=== PATIENT | female | born 1990 | race Caucasian/White ===

== ENCOUNTER 2017-09-09 09:44 | Inpatient (IN) | payer BC ==
[2017-09-09] MEDS ORDERED: Sodium Chloride 0.9% 10 ML Syringe FLUSH PRN (11:07)
[2017-09-09] MEDS ORDERED: ceFAZolin 2 GM in Premix Bag 1 BAG IV ONE (11:07)
[2017-09-09] MEDS ORDERED: Metoclopramide 10 MG/2 ML SDV IVPUSH ONE (11:07)
[2017-09-09] MEDS ORDERED: Citric Acid/Sodium Citrate Solution 30 ML Cup PO ONE (11:07)
[2017-09-09] MEDS ORDERED: Lactated Ringers 1,000 ML IV SCH (11:15)
[2017-09-09] MEDS ORDERED: Oxytocin/Lactated Ringers 20 UNIT/1,000 ML BAG IV SCH (11:15)
[2017-09-09] MEDS ORDERED: Bupivacaine 0.5% 30 ML SDV ONE (12:25)
--- NOTE | 2017-09-09 12:33 | PCM.LDHP ---
L&D History of Present Illness - General Date of Service: 09/09/17 Admit Problem/Dx: Patient Status Order with Admit Dx/Problem 09/09/17 11:09 Patient Status [ADT] Routine Admission Diagnosis/Problem Admission Diagnosis/Problem Source of Information: Patient History Limitations: Reports: No Limitations - History of Present Illness Introduction:: 26-year-old CHENTE 09/06/17 at estimated gestational age of 40 weeks and 3 days. Presented to labor and delivery with contractions and oblique/ transverse lie. Confirmed by Tawanda maneuver and absence of presenting part in the pelvis. Will proceed with section. GBS positive. A positive blood type antibody screen negative hemoglobin hematocrit on 02/09/1711.5/33.4 platelets 265,000 Pap smear atypical squamous cells of undetermined significance will repeat Pap . Rubella titer immune serology nonreactive urine culture mixed jhonny hepatitis B surface antigen negative HIV negative Chlamydia and GC probe were negative on 06/17/17 hemoglobin hematocrit 9.6 and 29.0 platelets 248,001 hour OB glucose screen 133 hour glucose tolerance test on 06/21/17 fasting 101, 1 hour 136, two-hour 150, 3 hour 122. Group B strep positive and 08/12/17. Improves with: Reports: None Worsens with: Reports: None Associated Symptoms: Reports: N - Related Data Allergies/Adverse Reactions: Allergies Allergy/AdvReac Type Severity Reaction Status Date / Time No Known Allergies Allergy Verified 09/09/17 11:06 Past Medical History : 1 Para: 0 (0000) H&P Review of Systems - Review of Systems: Review Of Systems: See Below General: Reports: No Symptoms HEENT: Reports: No Symptoms Pulmonary: Reports: No Symptoms Cardiovascular: Reports: No Symptoms Gastrointestinal: Reports: No Symptoms Genitourinary: Reports: No Symptoms Musculoskeletal: Reports: No Symptoms Skin: Reports: No Symptoms Psychiatric: Reports: No Symptoms Neurological: Reports: No Symptoms Hematologic/Lymphatic: Reports: No Symptoms Immunologic: Reports: No Symptoms L&D Exam - Exam Exam: See Below - Vital Signs Weight: 247 lb - OB Specific Fundal Height In cm: 41 Contraction Duration (sec): 30 Contraction Intensity: Mild to Moderate Movement: Active Heart Tones: Present Heart Tones per Min: 145 Heart Rate (FHR) Variability: Moderate (6-25 bmp) Presentation: Vertex - Bullock Score Bullock Score Cervix Position: Posterior Bullock Score Consistency: Soft Bullock Score Effacement: 0-30% Bullock Score Dilation: Closed Bullock Score 's Station: -3 (Oblique lie/transverse lie no presenting part in the pelvis.) Bullock Score Total: 2 - Exam General: Alert, Oriented HEENT: Conjunctiva Clear, Posterior Pharynx Clear, TMs Clear, PERRLA Neck: Supple, Trachea Midline Lungs: Clear to Auscultation, Normal Respiratory Effort Cardiovascular: Regular Rate, Regular Rhythm GI/Abdominal Exam: Normal Bowel Sounds, Soft, Non-Tender, No Organomegaly, No Distention, No Abnormal Bruit, No Mass, Pelvis Stable Genitourinary: Normal external exam, Normal bimanual exam, Normal speculum exam Extremities: Normal Inspection, Normal Range of Motion, Non-Tender, No Pedal Edema, Normal Capillary Refill Skin: Warm, Dry, Intact Neurological: Reflexes Equal Bilateral Psychiatric: Alert, Normal Affect, Normal Mood - Patient Data Lab Results Last 24 hrs: Laboratory Results - last 24 hr 09/09/17 Range/Units 11:25 WBC 10.84 H (3.98-10.04) K/mm3 RBC 4.06 (3.98-5.22) M/mm3 Hgb 11.0 L (11.2-15.7) gm/L Hct 33.9 L (34.1-44.9) % MCV 83.5 (79.4-94.8) fl MCH 27.1 (25.6-32.2) pg MCHC 32.4 (32.2-35.5) g/dl RDW Std Deviation 45.9 (36.4-46.3) fL Plt Count 274 (182-369) K/mm3 MPV 9.7 (9.4-12.3) fl Neut % (Auto) 78.1 H (34.0-71.1) % Lymph % (Auto) 12.9 L (19.3-51.7) % Cannon % (Auto) 7.7 (4.7-12.5) % Eos % (Auto) 0.6 L (0.7-5.8) Baso % (Auto) 0.1 (0.1-1.2) % Neut # (Auto) 8.47 H (1.56-6.13) K/mm3 Lymph # (Auto) 1.40 (1.18-3.74) K/mm3 Cannon # (Auto) 0.83 H (0.24-0.36) K/mm3 Eos # (Auto) 0.07 (0.04-0.36) K/mm3 Baso # (Auto) 0.01 (0.01-0.08) K/mm3 Result Diagrams: 09/09/17 11:25 - Problem List (1) 40 weeks gestation of SNOMED Code(s): 48687244 ICD Code: Z3A.40 - 40 WEEKS GESTATION OF Status: Acute Current Visit: Yes (2) GBS carrier SNOMED Code(s): 2362418650495 ICD Code: Z22.330 - CARRIER OF GROUP B STREPTOCOCCUS Status: Acute Current Visit: Yes (3) Oblique lie SNOMED Code(s): 52015018 ICD Code: O32.2XX0 - MATERNAL CARE FOR TRANSVERSE AND OBLIQUE LIE, UNSP Status: Acute Current Visit: Yes Qualifiers: Fetus number: single or unspecified fetus Qualified Code(s): O32.2XX0 - Maternal care for transverse and oblique lie, not applicable or unspecified Problem List Initiated/Reviewed/Updated: No Orders Last 24hrs: Active Orders 24 hr Category Date Time Status Patient Status [ADT] Routine ADT 09/09/17 11:09 Active Communication Order [RC] ROUTINE Care 09/09/17 11:09 Active Heart Tones [RC] PER UNIT ROUTINE Care 09/09/17 11:09 Active Peripheral IV Care [RC] . DIRECTED Care 09/09/17 11:09 Active Procedure Site Prep Instruct [RC] ASDIRECTED Care 09/09/17 11:09 Active Verify Patient Consent Obtain [RC] PER UNIT ROUTINE Care 09/09/17 11:09 Active Vital Signs [RC] PFP Care 09/09/17 11:09 Active Nothing Per Oral Diet [DIET] Diet 09/09/17 Lunch Active TYPE AND SCREEN [BBK] Stat Lab 09/09/17 11:25 Received Lactated Ringers [Ringers, Lactated] 1,000 ml Med 09/09/17 11:15 Active IV ASDIRECTED Oxytocin/Lactated Ringers [Pitocin in LR 20 Units/1,000 Med 09/09/17 11:15 Active ML] 20 unit in 1,000 ml IV ASDIRECTED Sodium Chloride 0.9% [Saline Flush] Med 09/09/17 11:07 Active 10 ml FLUSH ASDIRECTED PRN Peripheral IV Insertion Adult [OM.PC] Routine Oth 09/09/17 11:09 Ordered Schedule Procedure [COMM] Per Unit Routine Oth 09/09/17 11:09 Ordered Resuscitation Status Routine Resus Stat 09/09/17 11:07 Ordered Medication Orders Lactated Ringer's (Ringers, Lactated) 1,000 mls @ 125 mls/hr IV ASDIRECTED MABEL Last Admin: 09/09/17 11:25 Dose: 125 mls/hr Oxytocin/Lactated Ringer's (Pitocin In Lr 20 Units/1,000 Ml) 20 unit in 1,000 mls @ 500 mls/hr IV ASDIRECTED [facility]ABEL Sodium Chloride (Saline Flush) 10 ml FLUSH ASDIRECTED PRN PRN Reason: Keep Vein Open Assessment/Plan Comment:: Plan section primary.
[2017-09-09] MEDS ORDERED: Oxytocin 10 Units/1 ML SDV ONE (12:50)
[2017-09-09] MEDS ORDERED: Morphine PF 10 MG/10 ML SDV ONE (12:50)
--- NOTE | 2017-09-09 12:52 | PCM.PREANE ---
Preanesthetic Assessment - Procedure Proposed Procedure: Section - Anesthesia/Transfusion/Family Hx Anesthesia History: Prior Anesthesia Without Reaction Family History of Anesthesia Reaction: No Transfusion History: No Prior Transfusion(s) Intubation History: History of Difficulty Intubation - Review of Systems General: No Symptoms Cardiovascular: No Symptoms Gastrointestinal: No Symptoms Neurological: No Symptoms Other: Reports: None - Physical Assessment NPO Status Date: 09/09/17 NPO Status Time: 08:00 Pulse: 80 O2 Sat by Pulse Oximetry: 99 Respiratory Rate: 12 Blood Pressure: 137/78 Temperature: 97.9 C Height: 1.65 m Weight: 112.037 kg ASA Class: 2 Mental Status: Alert & Oriented x3 Airway Class: Mallampati = 2 Dentition: Reports: Dentures (upper dentures, poor dentition lower, many missing and/or broken ) Thyro-Mental Finger Breadths: 3 Mouth Opening Finger Breadths: 5 ROM/Head Extension: Full Lungs: Clear to Auscultation, Normal Respiratory Effort Cardiovascular: Regular Rate, Regular Rhythm - Lab Values: Laboratory Last Values WBC 10.84 K/mm3 (3.98-10.04) H 09/09/17 11:25 RBC 4.06 M/mm3 (3.98-5.22) 09/09/17 11:25 Hgb 11.0 gm/L (11.2-15.7) L 09/09/17 11:25 Hct 33.9 % (34.1-44.9) L 09/09/17 11:25 MCV 83.5 fl (79.4-94.8) 09/09/17 11:25 MCH 27.1 pg (25.6-32.2) 09/09/17 11:25 MCHC 32.4 g/dl (32.2-35.5) 09/09/17 11:25 RDW Std Deviation 45.9 fL (36.4-46.3) 09/09/17 11:25 Plt Count 274 K/mm3 (182-369) 09/09/17 11:25 MPV 9.7 fl (9.4-12.3) 09/09/17 11:25 Neut % (Auto) 78.1 % (34.0-71.1) H 09/09/17 11:25 Lymph % (Auto) 12.9 % (19.3-51.7) L 09/09/17 11:25 Parmer % (Auto) 7.7 % (4.7-12.5) 09/09/17 11:25 Eos % (Auto) 0.6 (0.7-5.8) L 09/09/17 11:25 Baso % (Auto) 0.1 % (0.1-1.2) 09/09/17 11:25 Neut # (Auto) 8.47 K/mm3 (1.56-6.13) H 09/09/17 11:25 Lymph # (Auto) 1.40 K/mm3 (1.18-3.74) 09/09/17 11:25 Parmer # (Auto) 0.83 K/mm3 (0.24-0.36) H 09/09/17 11:25 Eos # (Auto) 0.07 K/mm3 (0.04-0.36) 09/09/17 11:25 Baso # (Auto) 0.01 K/mm3 (0.01-0.08) 09/09/17 11:25 - Allergies Allergies/Adverse Reactions: Allergies Allergy/AdvReac Type Severity Reaction Status Date / Time No Known Allergies Allergy Verified 09/09/17 11:06 - Blood Blood Available: Yes Product(s) Available: PRBC - Acknowledgements Anesthesia Type Planned: Spinal Pt an Appropriate Candidate for the Planned Anesthesia: Yes Alternatives and Risks of Anesthesia Discussed w Pt/Guardian: Yes Pt/Guardian Understands and Agrees with Anesthesia Plan: Yes PreAnesthesia Questionnaire - CURRENT (IN HOUSE) MEDS Current Meds: Current Medications Lactated Ringer's (Ringers, Lactated) 1,000 mls @ 125 mls/hr IV ASDIRECTED [facility] Last Admin: 09/09/17 11:25 Dose: 125 mls/hr Oxytocin/Lactated Ringer's (Pitocin In Lr 20 Units/1,000 Ml) 20 unit in 1,000 mls @ 500 mls/hr IV ASDIRECTED [facility] Sodium Chloride (Saline Flush) 10 ml FLUSH ASDIRECTED PRN PRN Reason: Keep Vein Open Discontinued Medications Bupivacaine HCl (Marcaine 0.5%) Confirm Administered Dose 30 ml .ROUTE .STK-MED ONE Stop: 09/09/17 12:26 Citric Acid/Sodium Citrate (Bicitra Solution) 30 ml PO ONETIME ONE Stop: 09/09/17 11:08 Last Admin: 09/09/17 12:32 Dose: 30 ml Cefazolin Sodium/Dextrose 2 gm (/ Premix) 50 mls @ 100 mls/hr IV ONETIME ONE Stop: 09/09/17 11:36 Metoclopramide HCl (Reglan) 10 mg IVPUSH ONETIME ONE Stop: 09/09/17 11:08 Last Admin: 09/09/17 12:32 Dose: 10 mg Morphine Sulfate (Duramorph Pf) Confirm Administered Dose 10 mg .ROUTE .STK-MED ONE Stop: 09/09/17 12:51 Oxytocin (Pitocin) Confirm Administered Dose 20 unit .ROUTE .STK-MED ONE Stop: 09/09/17 12:51
[2017-09-09] MEDS ORDERED: ceFAZolin 1 GM Vial ONE (13:47)
--- NOTE | 2017-09-09 14:11 | PCM.OPNOTE ---
- General Post-Op/Procedure Note Date of Surgery/Procedure: 09/09/17 Operative Procedure(s): Primary low segment transverse Pre Op Diagnosis: Oblique/transverse lie head down right false pelvis, group B strep positive, 40 weeks plus estimated gestational age nilda. Post-Op Diagnosis: Same plus nuchal cord 1 and persistent occiput posterior Anesthesia Technique: Spinal Primary Surgeon: Jese Ambriz Secondary Surgeon: Chris Joy Anesthesia Provider: Jennifer Barrios Implementation Advisor: Marianne Szymanski (DAJUAN) Reason Implementation Advisor Was Necessary: Implementation Advisor delivery of the fetus, decrease comorbidity and comortality, retraction Role of Implementation Advisor: Implementation Advisor delivery of the fetus, decrease comorbidity and comortality, retraction Fluid Replacement, Intraop: 1,400 Output, Urine Amount: 75 EBL in mLs: 600 Drain/Tube Comments:: Guzmán Complications: None Condition: Good Free Text/Narrative:: Patient was transported to operating room #1 and placed under spinal anesthesia in the supine position with a wedge under the right hip and right flank. SCDs in place and functioning prior surgery. Ancef 2 g given intravenously prior surgery. Timeout performed confirming name date of and procedure as primary section. Guzmán catheter placed to gravity drainage. Patient prepared and draped in sterile fashion. Confirming adequate level of anesthesia. Timeout having been performed and the patient's was brought to the operating room. Injecting 20 mL of 0.5% Marcaine without epinephrine in the area of the planned incision after marking set area with marking pen the Pfannenstiel incision was made and care was sharp section to into the anterior fascia peritoneal cavity was entered without difficulty. Bladder flap created pushed caudad low segment transverse performed with clear amnionic fluid upon entry into the amnionic cavity delivering a male liveborn at 1335 hrs. on 09/09/17 weighing 30/9/80 grams/8 lbs. 12 oz. Apgars 9/9 at one and [address] Crane deburring technician present at delivery and attended to the . The three-vessel cord was clamped after reducing the nuchal cord severed and handed to the deburring technician. Cord blood was collected from three-vessel cord the placenta was removed manually endometrial cavity was inspected cervical patency assured sponge needle pack asthma sharp count correct times one and the uterine incision was closed running locking suture of #0 Monocryl for the first layer and modified Lembert imbricating suture for the second layer. One additional [id number] suture taken at the left angle of the incision to complete hemostasis. Sponge needle pack asthma sharp count correct 2 and the abdominal cavity was closed. Both tubes and ovaries appeared normal. Clots were cleaned from the gutters and cul-de-sac prior to beginning closure of the incision at the anterior fascia. The anterior fascia was closed with #1 PDS running suture irrigation carried out and 3 interrupted sutures of 0 Monocryl placed to approximate the subcutaneous tissue and the subcuticular closure the skin was performed with 3-0 Javad needle Monocryl. Patient was transported to postanesthesia care unit in satisfactory condition no blood transfusions were required.
[2017-09-09] MEDS ORDERED: diphenhydrAMINE 50 MG/ML SDV IVPUSH PRN ×2 (14:17→14:22)
[2017-09-09] MEDS ORDERED: Meperidine PF 50 MG/ML Syringe IVPUSH PRN (14:17)
[2017-09-09] MEDS ORDERED: Ondansetron 4 MG/2 ML SDV IVPUSH PRN (14:17)
[2017-09-09] MEDS ORDERED: Ketorolac 30 MG/ML SDV ONE (14:21)
[2017-09-09] MEDS ORDERED: Ondansetron 4 MG/2 ML SDV IV PRN (14:22)
[2017-09-09] MEDS ORDERED: Acetaminophen 325 MG Tab PO PRN (14:22)
[2017-09-09] MEDS ORDERED: Lanolin 100% Cream 7 GM Tube TOP PRN (14:22)
[2017-09-09] MEDS ORDERED: ePHEDrine 50 MG/ML SDV IVPUSH PRN (14:22)
[2017-09-09] MEDS ORDERED: Naloxone 0.4 MG/ML SDV IVPUSH PRN (14:22)
--- NOTE | 2017-09-09 14:25 | PCM.POSTAN ---
POST ANESTHESIA ASSESSMENT - MENTAL STATUS Mental Status: Alert - VITAL SIGNS Pulse Rate: 68 SaO2: 97 Resp Rate: 12 Blood Pressure: 128/60 Temperature: 97.7 C - RESPIRATORY Respiratory Status: Respiratory Rate WNL, Airway Patent, O2 Saturation Stable - CARDIOVASCULAR CV Status: Pulse Rate WNL, Blood Pressure Stable - GASTROINTESTINAL GI Status: No Symptoms - PAIN Pain Score: 0 - POST OP HYDRATION Hydration Status: Adequate & Stable
[2017-09-09] MEDS ORDERED: Dextrose 5%-Lactated Ringers 1,000 ML IV SCH (14:30)
--- NOTE | 2017-09-09 17:37 | PCM.SN ---
- Free Text/Narrative Note: Day of surgery Patient is awake alert eating supper no heavy vaginal bleeding, no leg cramping. Good urine output clear yellow. Doing well
[2017-09-09] MEDS: Ketorolac 30 MG/ML SDV IVPUSH SCH (20:24)
[2017-09-10] MEDS: Ketorolac 30 MG/ML SDV IVPUSH SCH ×2 (04:18→09:17)
[2017-09-10] MEDS: Acetaminophen/oxyCODONE 325-5 MG Tab PO PRN ×4 (05:06→20:43)
--- NOTE | 2017-09-10 06:58 | PCM.SN ---
- Free Text/Narrative Note: POD#1 Afebrile, no heavy vaginal bleeding, no leg cramping. Hgb 8.[address] Beyer to take over care publications distribution clerk at 1700 tonight and dismiss when ready.
--- NOTE | 2017-09-10 13:43 | PCM48HPAN ---
Post Anesthesia Note - EVALUATION WITHIN 48HRS OF ANESTHETIC Vital Signs in Normal Range: Yes Patient Participated in Evaluation: Yes Respiratory Function Stable: Yes Airway Patent: Yes Cardiovascular Function Stable: Yes Hydration Status Stable: Yes Pain Control Satisfactory: Yes Nausea and Vomiting Control Satisfactory: Yes Mental Status Recovered: Yes - COMMENTS/OBSERVATIONS Free Text/Narrative:: Patient assessed in hospital room. Ambulating, no concerns related to spinal anesthetic.
[2017-09-10] MEDS: Ibuprofen 600 MG Tab PO PRN (18:30)
[2017-09-11] MEDS: Ibuprofen 600 MG Tab PO PRN ×2 (01:00→07:32)
[2017-09-11] MEDS: Acetaminophen/oxyCODONE 325-5 MG Tab PO PRN ×2 (03:24→08:42)
--- NOTE | 2017-09-11 08:07 | PCM.PNPP ---
- General Info Date of Service: 09/11/17 Functional Status: Reports: Pain Controlled (for the most part, some flares in pain prior to next doses of medication ), Tolerating Diet, Ambulating, Urinating - Review of Systems General: Reports: No Symptoms Pulmonary: Reports: No Symptoms Cardiovascular: Reports: No Symptoms Gastrointestinal: Reports: Abdominal Pain Genitourinary: Reports: No Symptoms - Patient Data Vital Signs - Most Recent: Last Vital Signs Temp 36.8 C 09/11/17 04:26 Pulse 83 09/11/17 04:26 Resp 13 09/11/17 04:26 BP 124/71 09/11/17 04:26 Pulse Ox 97 09/11/17 04:26 Weight - Most Recent: 112.037 kg I&O - Last 24 Hours: Intake & Output 09/10/17 09/11/17 09/11/17 22:59 06:59 14:59 Intake Total 0 1500 Balance 0 1500 Med Orders - Current: Current Medications Acetaminophen (Tylenol) 650 mg PO Q4H PRN PRN Reason: mild pain or fever Diphenhydramine HCl (Benadryl) 25 mg IVPUSH Q6H PRN PRN Reason: pruritis Diphenhydramine HCl (Benadryl) 25 mg IVPUSH Q6H PRN PRN Reason: Itching or Nausea Emollient Ointment (Lansinoh Hpa) 0 gm TOP ASDIRECTED PRN PRN Reason: Sore Nipples Ephedrine Sulfate (Ephedrine Sulfate) 5 mg IVPUSH SEECOMMENT PRN PRN Reason: Other Ibuprofen (Motrin) 600 mg PO Q6H PRN PRN Reason: mild pain or fever Last Admin: 09/11/17 07:32 Dose: 600 mg Meperidine HCl (Demerol) 12.5 mg IVPUSH ONETIME PRN PRN Reason: shivering Last Admin: 09/09/17 14:50 Dose: 12.5 mg Naloxone HCl (Narcan) 0.1 mg IVPUSH SEECOMMENT PRN PRN Reason: Respiratory Depression Ondansetron HCl (Zofran) 4 mg IVPUSH ONETIME PRN PRN Reason: Nausea/Vomiting Ondansetron HCl (Zofran) 4 mg IV Q8H PRN PRN Reason: Nausea/Vomiting Oxycodone/Acetaminophen (Percocet 325-5 Mg) 2 tab PO Q4H PRN PRN Reason: Pain (moderate 4-6) Last Admin: 09/11/17 03:24 Dose: 2 tab Discontinued Medications Bupivacaine HCl (Marcaine 0.5%) Confirm Administered Dose 30 ml .ROUTE .STK-MED ONE Stop: 09/09/17 12:26 Last Admin: 09/09/17 13:32 Dose: 20 ml Cefazolin Sodium (Ancef) Confirm Administered Dose 2 gm .ROUTE .STK-MED ONE Stop: 09/09/17 13:48 Citric Acid/Sodium Citrate (Bicitra Solution) 30 ml PO ONETIME ONE Stop: 09/09/17 11:08 Last Admin: 09/09/17 12:32 Dose: 30 ml Cefazolin Sodium/Dextrose 2 gm (/ Premix) 50 mls @ 100 mls/hr IV ONETIME ONE Stop: 09/09/17 11:36 Last Admin: 09/09/17 17:36 Dose: Not Given Lactated Ringer's (Ringers, Lactated) 1,000 mls @ 125 mls/hr IV ASDIRECTED [facility] Last Admin: 09/09/17 11:25 Dose: 125 mls/hr Oxytocin/Lactated Ringer's (Pitocin In Lr 20 Units/1,000 Ml) 20 unit in 1,000 mls @ 500 mls/hr IV ASDIRECTED [facility] Dextrose/Lactated Ringer's (Dextrose 5%-Lactated Ringers) 1,000 mls @ 125 mls/ hr IV ASDIRECTED [facility] Stop: 09/09/17 22:29 Last Admin: 09/09/17 18:24 Dose: 125 mls/hr Ketorolac Tromethamine (Toradol) Confirm Administered Dose 30 mg .ROUTE .STK- MED ONE Stop: 09/09/17 14:22 Ketorolac Tromethamine (Toradol) 30 mg IVPUSH Q6H [facility] Stop: 09/10/17 08:01 Last Admin: 09/10/17 09:17 Dose: 30 mg Metoclopramide HCl (Reglan) 10 mg IVPUSH ONETIME ONE Stop: 09/09/17 11:08 Last Admin: 09/09/17 12:32 Dose: 10 mg Morphine Sulfate (Duramorph Pf) Confirm Administered Dose 10 mg .ROUTE .STK-MED ONE Stop: 09/09/17 12:51 Oxytocin (Pitocin) Confirm Administered Dose 20 unit .ROUTE .STK-MED ONE Stop: 09/09/17 12:51 Sodium Chloride (Saline Flush) 10 ml FLUSH ASDIRECTED PRN PRN Reason: Keep Vein Open - Infant Interaction Disposition, : in Room with Family Infant Interaction: Holding Infant Feeding: Bottle Fed Infant Support Person: Significant Other - Recovery Exam Fundal Tone: Firm Fundal Level: 1 Fingerbreadths Below Umbilicus Fundal Placement: Midline Lochia Amount: Scant Lochia Color: Brownish Perineum Description: Intact, Minimal Bruising/Swelling Episiotomy/Laceration: Approximated Bladder Status: Nonpalpable Urinary Elimination: Voided - Exam General: Alert, Oriented, Cooperative Lungs: Clear to Auscultation, Normal Respiratory Effort Cardiovascular: Regular Rate, Regular Rhythm GI/Abdominal Exam: Soft, Tender (appropriate post op) Skin: Warm, Dry, Intact Wound/Incisions: Healing Well, No Drainage - Problem List & Annotations (1) S/P SNOMED Code(s): 689246927 Code(s): Z98.891 - HISTORY OF UTERINE SCAR FROM PREVIOUS SURGERY Status: Acute (2) 40 weeks gestation of SNOMED Code(s): 64516090 Code(s): Z3A.40 - 40 WEEKS GESTATION OF Status: Acute (3) Oblique lie SNOMED Code(s): 48675458 Code(s): O32.2XX0 - MATERNAL CARE FOR TRANSVERSE AND OBLIQUE LIE, UNSP Status: Acute Qualifiers: Fetus number: single or unspecified fetus Qualified Code(s): O32.2XX0 - Maternal care for transverse and oblique lie, not applicable or unspecified - Problem List Review Problem List Initiated/Reviewed/Updated: Yes - Assessment Assessment:: POD#3 from PLTCS - Plan Plan:: * Routine cares * Bottle feeding * Discharge home today
--- NOTE | 2017-09-11 08:12 | PCM.DCSUM1 ---
Discharge Summary - Discharge Data Discharge Date: 09/11/17 Discharge Disposition: Home, Self-Care 01 Condition: Good - Patient Summary/Data Operative Procedure(s) Performed: Primary low segment transverse Complications: None Consults: Consultations 09/10/17 11:11 Consult to Line Tester [CONS] Routine Recommended Follow-up Testing/Procedures: Follow up with Dr. Ambriz in 1-2 weeks Hospital Course: 26 y/o at 40 3/7 wks presented to L&D in early labor. Exam showed oblique lie. She was taken for PLTCS. THis was uncomplicated. See procedure note. Post she did well and was discharged home on PPD#3. - Patient Instructions Diet: Regular Diet as Tolerated Activity: No Lifting Over 10 Pounds Activity, Other: Pelvic Rest 6 weeks Driving: Do Not Drive (While taking narcotics ) Showering/Bathing: May Shower, No Tub Bathing/Swimming Wound/Incision Care: Keep Operative Site/Wound Site Clean and Dry Notify Provider of: Fever, Increased Pain, Swelling and Redness, Drainage, Nausea and/or Vomiting - Discharge Plan Prescriptions/Med Rec: Acetaminophen/oxyCODONE [Percocet 325-5 MG] 2 tab PO Q4H PRN #25 tablet PRN Reason: Pain (Moderate 4-6) Home Medications: Home Meds Acetaminophen/oxyCODONE [Percocet 325-5 MG] 2 tab PO Q4H PRN #25 tablet [Rx] Ibuprofen [IJD: Ibuprofen] 600 mg PO Q6H PRN tablet 09/11/17 [Rx] Patient Handouts: Smoking Cessation, Tips for Success, [id number], Smoking Hazards, Home Care Instructions for Mom, Tobacco Use Disorder Referrals: Jese Ambriz MD [Physician] - (2 weeks ) - Discharge Summary/Plan Comment DC Time >30 min.: No - Patient Data Vitals - Most Recent: Last Vital Signs Temp 36.8 C 09/11/17 04:26 Pulse 83 09/11/17 04:26 Resp 13 09/11/17 04:26 BP 124/71 09/11/17 04:26 Pulse Ox 97 09/11/17 04:26 Weight - Most Recent: 112.037 kg I&O - Last 24 hours: Intake & Output 12/10/2709/11/17 09/11/17 22:59 06:59 14:59 Intake Total 0 1500 Balance 0 1500 Med Orders - Current: Current Medications Acetaminophen (Tylenol) 650 mg PO Q4H PRN PRN Reason: mild pain or fever Diphenhydramine HCl (Benadryl) 25 mg IVPUSH Q6H PRN PRN Reason: pruritis Diphenhydramine HCl (Benadryl) 25 mg IVPUSH Q6H PRN PRN Reason: Itching or Nausea Emollient Ointment (Lansinoh Hpa) 0 gm TOP ASDIRECTED PRN PRN Reason: Sore Nipples Ephedrine Sulfate (Ephedrine Sulfate) 5 mg IVPUSH SEECOMMENT PRN PRN Reason: Other Ibuprofen (Motrin) 600 mg PO Q6H PRN PRN Reason: mild pain or fever Last Admin: 09/11/17 07:32 Dose: 600 mg Meperidine HCl (Demerol) 12.5 mg IVPUSH ONETIME PRN PRN Reason: shivering Last Admin: 09/09/17 14:50 Dose: 12.5 mg Naloxone HCl (Narcan) 0.1 mg IVPUSH SEECOMMENT PRN PRN Reason: Respiratory Depression Ondansetron HCl (Zofran) 4 mg IVPUSH ONETIME PRN PRN Reason: Nausea/Vomiting Ondansetron HCl (Zofran) 4 mg IV Q8H PRN PRN Reason: Nausea/Vomiting Oxycodone/Acetaminophen (Percocet 325-5 Mg) 2 tab PO Q4H PRN PRN Reason: Pain (moderate 4-6) Last Admin: 09/11/17 03:24 Dose: 2 tab Discontinued Medications Bupivacaine HCl (Marcaine 0.5%) Confirm Administered Dose 30 ml .ROUTE .STK-MED ONE Stop: 09/09/17 12:26 Last Admin: 09/09/17 13:32 Dose: 20 ml Cefazolin Sodium (Ancef) Confirm Administered Dose 2 gm .ROUTE .STK-MED ONE Stop: 09/09/17 13:48 Citric Acid/Sodium Citrate (Bicitra Solution) 30 ml PO ONETIME ONE Stop: 09/09/17 11:08 Last Admin: 09/09/17 12:32 Dose: 30 ml Cefazolin Sodium/Dextrose 2 gm (/ Premix) 50 mls @ 100 mls/hr IV ONETIME ONE Stop: 09/09/17 11:36 Last Admin: 09/09/17 17:36 Dose: Not Given Lactated Ringer's (Ringers, Lactated) 1,000 mls @ 125 mls/hr IV ASDIRECTED [facility] Last Admin: 09/09/17 11:25 Dose: 125 mls/hr Oxytocin/Lactated Ringer's (Pitocin In Lr 20 Units/1,000 Ml) 20 unit in 1,000 mls @ 500 mls/hr IV ASDIRECTED [facility] Dextrose/Lactated Ringer's (Dextrose 5%-Lactated Ringers) 1,000 mls @ 125 mls/ hr IV ASDIRECTED [facility] Stop: 09/09/17 22:29 Last Admin: 09/09/17 18:24 Dose: 125 mls/hr Ketorolac Tromethamine (Toradol) Confirm Administered Dose 30 mg .ROUTE .STK- MED ONE Stop: 09/09/17 14:22 Ketorolac Tromethamine (Toradol) 30 mg IVPUSH Q6H [facility] Stop: 09/10/17 08:01 Last Admin: 09/10/17 09:17 Dose: 30 mg Metoclopramide HCl (Reglan) 10 mg IVPUSH ONETIME ONE Stop: 09/09/17 11:08 Last Admin: 09/09/17 12:32 Dose: 10 mg Morphine Sulfate (Duramorph Pf) Confirm Administered Dose 10 mg .ROUTE .STK-MED ONE Stop: 09/09/17 12:51 Oxytocin (Pitocin) Confirm Administered Dose 20 unit .ROUTE .STK-MED ONE Stop: 09/09/17 12:51 Sodium Chloride (Saline Flush) 10 ml FLUSH ASDIRECTED PRN PRN Reason: Keep Vein Open *Q Meaningful Use (DIS) - VTE *Q VTE Criteria *Q: - Stroke *Q Stroke Criteria *Q: - AMI *Q AMI Criteria *Q:
== END 2017-09-11 10:35 | disposition home or self-care (01) | DRG 540 ==
LOC: JD.OBCHECK 09:44 → JD.OB 09:45 → JD.OBCHECK 11:08 → JD.OB 11:09 → UNDODISIN 09-10 18:52
PROVIDERS: ADMIT Obstetrics & Gynecology; ATTEND Obstetrics & Gynecology
PROC: 10D00Z1 Extraction of Products of Conception, Low, Open Approach (ICD-10-PCS; principal; 2017-09-09)
DX: O32.2XX0 Maternal care for transverse and oblique lie, not applicable or unspecified (principal); Z3A.40 40 weeks gestation of pregnancy; Z37.0 Single live birth; O69.81X0 Labor and delivery complicated by cord around neck, without compression, not applicable or unspecified; O99.824 Streptococcus B carrier state complicating childbirth
CPT/HCPCS: 01961; 36415; 85025; 86850; 86900; 86901; A9270-GY; J0690; J1885; J2175; J2270; J2590; J2765; J7042; J7120

== ENCOUNTER 2017-10-21 11:08 | Emergency (ER) | payer BC ==
[2017-10-21] MEDS ORDERED: Sodium Chloride 0.9% 10 ML Syringe FLUSH PRN (11:33)
[2017-10-21] MEDS ORDERED: Ondansetron 4 MG/2 ML SDV IVPUSH ONE (11:33)
[2017-10-21] MEDS ORDERED: HYDROmorphone 1 MG/ML Syringe IVPUSH ONE (11:36)
[2017-10-21] MEDS ORDERED: Ketorolac 30 MG/ML SDV IVPUSH ONE (11:36)
[2017-10-21] MEDS ORDERED: Sodium Chloride 0.9% 1,000 ML IV SCH (11:45)
--- NOTE | 2017-10-21 11:55 | EDM.PDOC ---
ED HPI GENERAL MEDICAL PROBLEM - General Chief Complaint: Back Pain or Injury Stated Complaint: BACK PAIN Time Seen by Provider: 10/21/17 11:27 Source of Information: Reports: Patient History Limitations: Reports: No Limitations - History of Present Illness INITIAL COMMENTS - FREE TEXT/NARRATIVE: The patient presents with left flank pain and left sided abdominal pain. This started about 6 weeks ago after she had a delivery. She denies any injury and she has not been doing any strenuous activity. The pain is worse the past few days. She has nausea but no vomiting. The pain is sharp and constant. She has no fever, chills, cough, chest pain or shortness of breath. She has no history of kidney stones. She had no complications with the c- section. She does have an umbilical hernia that she is watching. Onset: Gradual Duration: Week(s): (6) Location: Reports: Abdomen, Back (Left flank) Quality: Reports: Sharp Severity: Moderate Improves with: Reports: None Worsens with: Reports: None Associated Symptoms: Reports: Nausea/Vomiting. Denies: Chest Pain, Cough, Fever /Chills, Headaches, Shortness of Breath Left Back Pain Score (Numeric/FACES): 10 - Related Data Allergies Allergy/AdvReac Type Severity Reaction Status Date / Time No Known Allergies Allergy Verified 10/21/17 11:18 Home Meds: Home Meds Acetaminophen/oxyCODONE [Percocet 325-5 MG] 2 tab PO Q4H PRN #25 tablet [Rx] Ibuprofen [IJD: Ibuprofen] 600 mg PO Q6H PRN tablet 09/11/17 [Rx] Cyclobenzaprine [Flexeril] 10 mg PO TID PRN #20 tablet 10/21/17 [Rx] Naproxen [Naprosyn] 500 mg PO Q12HR PRN #30 tablet 10/21/17 [Rx] Past Medical History Gastrointestinal History: Reports: GERD - Past Surgical History Female Surgical History: Reports: Section Social & Family History - Family History Family Medical History: Noncontributory - Tobacco Use Smoking Status *Q: Current Every Day Smoker Years of Tobacco use: 1 Packs/Tins Daily: 0.2 Used Tobacco, but Quit: Yes Month Tobacco Last Used: 01/2017 - Caffeine Use Caffeine Use: Reports: Soda - Recreational Drug Use Recreational Drug Use: No ED ROS GENERAL - Review of Systems Review Of Systems: See Below Constitutional: Reports: No Symptoms HEENT: Reports: No Symptoms Respiratory: Reports: No Symptoms Cardiovascular: Reports: No Symptoms Endocrine: Reports: No Symptoms GI/Abdominal: Reports: Abdominal Pain, Nausea. Denies: Diarrhea, Vomiting : Reports: Flank Pain (Left) Musculoskeletal: Reports: No Symptoms ED EXAM,LOWER BACK PAIN/INJURY - Physical Exam Exam: See Below Exam Limited By: No Limitations General Appearance: Alert, No Apparent Distress Ears: Normal External Exam Nose: Normal Inspection Head: Atraumatic, Normocephalic Neck: Normal Inspection Respiratory/Chest: No Respiratory Distress, Lungs Clear, Normal Breath Sounds Cardiovascular: Regular Rate, Rhythm, No Edema, No Murmur GI/Abdominal: Soft, No Organomegaly, No Mass, Tender (Left sided abdominal pain. Umbilical hernia) Back Exam: CVA Tenderness (L) Extremities: Normal Inspection, Other (No edema or pain in her legs) Neurological: Alert, No Motor/Sensory Deficits, Oriented x 3 Course - Vital Signs Last Recorded V/S: Last Vital Signs Temp 97 F 10/21/17 11:15 Pulse 91 10/21/17 11:15 Resp 18 10/21/17 11:15 BP 162/101 H 10/21/17 11:15 Pulse Ox 100 10/21/17 11:15 - Orders/Labs/Meds Orders: Active Orders 24 hr Category Date Time Status Peripheral IV Care [RC] . DIRECTED Care 10/21/17 11:34 Active Sodium Chloride 0.9% [Normal Saline] 1,000 ml Med 10/21/17 11:45 Active IV ASDIRECTED Sodium Chloride 0.9% [Saline Flush] Med 10/21/17 11:33 Active 10 ml FLUSH ASDIRECTED PRN ED Antiemetic Medication Reflex [OM.PC] Stat Oth 10/21/17 11:34 Ordered Peripheral IV Insertion Adult [OM.PC] Stat Oth 10/21/17 11:33 Ordered Medication Orders Sodium Chloride (Normal Saline) 1,000 mls @ 125 mls/hr IV ASDIRECTED MABEL Last Admin: 10/21/17 11:51 Dose: 125 mls/hr Sodium Chloride (Saline Flush) 10 ml FLUSH ASDIRECTED PRN PRN Reason: Keep Vein Open Last Admin: 10/21/17 11:54 Dose: 10 ml Labs: Laboratory Tests 10/21/17 10/21/17 10/21/17 Range/Units 11:50 11:50 11:50 WBC 8.10 (3.98-10.04) K/mm3 RBC 4.99 (3.98-5.22) M/mm3 Hgb 13.0 (11.2-15.7) gm/L Hct 40.3 (34.1-44.9) % MCV 80.8 (79.4-94.8) fl MCH 26.1 (25.6-32.2) pg MCHC 32.3 (32.2-35.5) g/dl RDW Std Deviation 41.3 (36.4-46.3) fL Plt Count 298 (182-369) K/mm3 MPV 9.1 L (9.4-12.3) fl Neut % (Auto) 54.2 (34.0-71.1) % Lymph % (Auto) 33.6 (19.3-51.7) % [place] % (Auto) 7.3 (4.7-12.5) % Eos % (Auto) 4.6 (0.7-5.8) Baso % (Auto) 0.2 (0.1-1.2) % Neut # (Auto) 4.39 (1.56-6.13) K/mm3 Lymph # (Auto) 2.72 (1.18-3.74) K/mm3 [place] # (Auto) 0.59 H (0.24-0.36) K/mm3 Eos # (Auto) 0.37 H (0.04-0.36) K/mm3 Baso # (Auto) 0.02 (0.01-0.08) K/mm3 Sodium 138 (136-145) mEq/L Potassium 3.1 L (3.5-5.1) mEq/L Chloride 104 (98-107) mEq/L Carbon Dioxide 22 (21-32) mEq/L Anion Gap 15.1 H (5-15) BUN 8 (7-18) mg/dL Creatinine 1.1 H (0.55-1.02) mg/dL Est Cr Clr Drug Dosing 70.35 mL/min Estimated GFR (MDRD) > 60 (>60) mL/min BUN/Creatinine Ratio 7.3 L (14-18) Glucose 110 H (74-106) mg/dL Calcium 9.0 (8.5-10.1) mg/dL Total Bilirubin 0.4 (0.2-1.0) mg/dL AST 21 (15-37) U/L ALT 27 (14-59) U/L Alkaline Phosphatase 80 (46-116) U/L Total Protein 7.9 (6.4-8.2) g/dl Albumin 4.2 (3.4-5.0) g/dl Globulin 3.7 gm/dL Albumin/Globulin Ratio 1.1 (1-2) Lipase 161 (73-393) U/L HCG, Qual Negative (NEGATIVE) Urine Color (Yellow) Urine Appearance (Clear) Urine pH (5.0-8.0) Ur Specific [place] (1.005-1.030) Urine Protein (Negative) Urine Glucose (UA) (Negative) Urine Ketones (Negative) Urine Occult Blood (Negative) Urine Nitrite (Negative) Urine Bilirubin (Negative) Urine Urobilinogen (0.2-1.0) Ur Leukocyte Esterase (Negative) Urine RBC (0-5) /hpf Urine WBC (0-5) /hpf Ur Epithelial Cells (0-5) /hpf Urine Bacteria (FEW) /hpf Urine Mucus (FEW) /hpf 10/21/17 Range/Units 13:28 WBC (3.98-10.04) K/mm3 RBC (3.98-5.22) M/mm3 Hgb (11.2-15.7) gm/L Hct (34.1-44.9) % MCV (79.4-94.8) fl MCH (25.6-32.2) pg MCHC (32.2-35.5) g/dl RDW Std Deviation (36.4-46.3) fL Plt Count (182-369) K/mm3 MPV (9.4-12.3) fl Neut % (Auto) (34.0-71.1) % Lymph % (Auto) (19.3-51.7) % [place] % (Auto) (4.7-12.5) % Eos % (Auto) (0.7-5.8) Baso % (Auto) (0.1-1.2) % Neut # (Auto) (1.56-6.13) K/mm3 Lymph # (Auto) (1.18-3.74) K/mm3 [place] # (Auto) (0.24-0.36) K/mm3 Eos # (Auto) (0.04-0.36) K/mm3 Baso # (Auto) (0.01-0.08) K/mm3 Sodium (136-145) mEq/L Potassium (3.5-5.1) mEq/L Chloride (98-107) mEq/L Carbon Dioxide (21-32) mEq/L Anion Gap (5-15) BUN (7-18) mg/dL Creatinine (0.55-1.02) mg/dL Est Cr Clr Drug Dosing mL/min Estimated GFR (MDRD) (>60) mL/min BUN/Creatinine Ratio (14-18) Glucose (74-106) mg/dL Calcium (8.5-10.1) mg/dL Total Bilirubin (0.2-1.0) mg/dL AST (15-37) U/L ALT (14-59) U/L Alkaline Phosphatase (46-116) U/L Total Protein (6.4-8.2) g/dl Albumin (3.4-5.0) g/dl Globulin gm/dL Albumin/Globulin Ratio (1-2) Lipase (73-393) U/L HCG, Qual (NEGATIVE) Urine Color Yellow (Yellow) Urine Appearance Clear (Clear) Urine pH 7.0 (5.0-8.0) Ur Specific [place] 1.015 (1.005-1.030) Urine Protein Negative (Negative) Urine Glucose (UA) Negative (Negative) Urine Ketones Negative (Negative) Urine Occult Blood 3+ H (Negative) Urine Nitrite Negative (Negative) Urine Bilirubin Negative (Negative) Urine Urobilinogen 0.2 (0.2-1.0) Ur Leukocyte Esterase Trace H (Negative) Urine RBC 10-20 H (0-5) /hpf Urine WBC 0-5 (0-5) /hpf Ur Epithelial Cells 0-5 (0-5) /hpf Urine Bacteria Few (FEW) /hpf Urine Mucus Not seen (FEW) /hpf Meds: Medications Generic Name Dose Route Start Last Admin Trade Name Freq PRN Reason Stop Dose Admin Sodium Chloride 1,000 mls @ 125 mls/hr 10/21/17 11:45 10/21/17 11:51 Normal Saline IV 125 mls/hr ASDIRECTED MABEL Administration Sodium Chloride 10 ml 10/21/17 11:33 10/21/17 11:54 Saline Flush FLUSH 10 ml ASDIRECTED PRN Administration Keep Vein Open Discontinued Medications Generic Name Dose Route Start Last Admin Trade Name Preston PRN Reason Stop Dose Admin Hydromorphone HCl 1 mg 10/21/17 11:36 10/21/17 11:55 Dilaudid IVPUSH 10/21/17 11:37 1 mg ONETIME ONE Administration Ketorolac Tromethamine 30 mg 10/21/17 11:36 10/21/17 11:59 Toradol IVPUSH 10/21/17 11:37 30 mg ONETIME ONE Administration Ondansetron HCl 4 mg 10/21/17 11:33 10/21/17 11:52 Zofran IVPUSH 10/21/17 11:34 4 mg ONETIME ONE Administration - Re-Assessments/Exams Free Text/Narrative Re-Assessment/Exam: 10/21/17 11:56 I ordered an IV NS at 125mL/hr, zofran 4mg IV, toradol 30mg IV, dilaudid 1mg IV , labs, UA and a CT of her abdomen and pelvis to look for a kidney stone. 10/21/17 14:05 Her CBC looks good. Her K was a little low at 3.1. Her creatinine was elevated at 1.1. Her HCG was negative. Her UA showed some blood and no UTI. Her CT shows small nonobstructing stone within the mid left kidney. No ureteral dilatation or ereteral stone is seen. 3.5cm cyst within the left ovary. Nothing acute is appreciated on noncontrast CT study of the abdomen and pelvis performed as a ureteral stone protocol. She feels much better now. I feel this is more musculoskeletal pain. I will give her a mucle relaxer and some naprosyn for pain. Departure - Departure Time of Disposition: 14:10 Disposition: Home, Self-Care 01 Condition: Good Clinical Impression: Left ovarian cyst Left low back pain Qualifiers: Chronicity: acute Sciatica presence: with sciatica Sciatica laterality: sciatica of left side Qualified Code(s): M54.42 - Lumbago with sciatica, left side - Discharge Information Prescriptions: Naproxen [Naprosyn] 500 mg PO Q12HR PRN #30 tablet PRN Reason: Pain Cyclobenzaprine [Flexeril] 10 mg PO TID PRN #20 tablet PRN Reason: Pain Referrals: Jese Ambriz MD [Primary Care Provider] - Forms: ED Department Discharge Additional Instructions: Take the medicine as needed for pain. Please return if you are worse. - My Orders Last 24 Hours: My Active Orders 10/21/17 11:33 Sodium Chloride 0.9% [Saline Flush] 10 ml FLUSH ASDIRECTED PRN Peripheral IV Insertion Adult [OM.PC] Stat 10/21/17 11:34 Peripheral IV Care [RC] . DIRECTED ED Antiemetic Medication Reflex [OM.PC] Stat 10/21/17 11:45 Sodium Chloride 0.9% [Normal Saline] 1,000 ml IV ASDIRECTED - Assessment/Plan Last 24 Hours: My Active Orders 10/21/17 11:33 Sodium Chloride 0.9% [Saline Flush] 10 ml FLUSH ASDIRECTED PRN Peripheral IV Insertion Adult [OM.PC] Stat 10/21/17 11:34 Peripheral IV Care [RC] . DIRECTED ED Antiemetic Medication Reflex [OM.PC] Stat 10/21/17 11:45 Sodium Chloride 0.9% [Normal Saline] 1,000 ml IV ASDIRECTED
--- NOTE | 2017-10-21 12:35 | CT ---
CT abdomen and pelvis Technique: Multiple axial sections were obtained from above the dome of the diaphragm inferiorly through the pubic symphysis. Intravenous and oral contrast not utilized. Study has been performed as a ureteral stone protocol. Comparison: No prior abdominal imaging. Findings: Single nonobstructing small stone is noted within the mid left kidney. Right kidney shows no abnormal calcifications. No ureteral dilatation or ureteral stone is seen. Visualized lung bases are clear. Noncontrast appearance of the liver and spleen appear within normal limits. Adrenal glands show no nodule. Pancreas shows no abnormality. Gallbladder contains no calcified gallstones. Aorta shows no aneurysmal dilatation. No retroperitoneal adenopathy is seen. Bulging of the anterior abdominal wall is noted involving the rectus muscle. Cyst noted within the left ovary measuring 3.5 cm. No free fluid or inflammatory change is seen within the abdomen or pelvis. Appendix is seen and appears normal. Bone window settings were reviewed which shows a hemangioma within the L4 vertebral body as an incidental note. Impression: 1. Small nonobstructing stone within the mid left kidney. No ureteral dilatation or ureteral stone is seen. 2. 3.5 cm cyst within the left ovary. 3. Incidental hemangioma within the L4 vertebral body. 4. Nothing acute is appreciated on noncontrast CT study of the abdomen and pelvis performed as a ureteral stone protocol. Diagnostic code #2
== END 2017-10-21 14:33 | disposition home or self-care (01) ==
LOC: JD.ED 11:08
DX: N83.202 Unspecified ovarian cyst, left side (principal); M54.42 Lumbago with sciatica, left side; F17.210 Nicotine dependence, cigarettes, uncomplicated; Z79.899 Other long term (current) drug therapy
CPT/HCPCS: 36415; 74176; 80053; 81001; 83690; 84703; 85025; 96361; 96374; 96375; 99284; J1170; J1885; J2405; J7040; J7050

== ENCOUNTER 2020-05-04 10:47 | Emergency (ER) | payer SELFPAY ==
[2020-05-04] MEDS ORDERED: HYDROmorphone 1 MG/ML Syringe IM ONE (12:01)
--- NOTE | 2020-05-04 13:15 | CR ---
Left foot: 3 views left foot were obtained. Comparison: No previous study. Distal tibial fracture and lateral malleolus fracture with partial tibiotalar dislocation is seen. No discrete foot fracture is seen. Impression: 1. Fracture/dislocation within the ankle. 2. Nothing acute is seen within the left foot. Diagnostic code #3 This report was dictated in [facility]
--- NOTE | 2020-05-04 13:15 | CR ---
Left ankle: 4 views of the left ankle were obtained. Comparison: No previous study. Distal tibial fracture is seen. Partial dislocation is noted anteriorly. Fracture involves the posterior malleolus as well as medial malleolus as well as more proximal transverse fracture line being seen. Lateral malleolus fracture is also noted. Diffuse soft tissue swelling is noted. No additional abnormality is appreciated. Impression: 1. Distal tibial fractures and lateral malleolus fracture. 2. Partial dislocation of the tibia in relation to the talus is seen in an anterior direction. Diagnostic code #3 This report was dictated in MDT
--- NOTE | 2020-05-04 13:24 | EDM.PDOC ---
ED HPI GENERAL MEDICAL PROBLEM - General Chief Complaint: Lower Extremity Injury/Pain Stated Complaint: LT ANKLE INJURY Time Seen by Provider: 05/04/20 11:24 Source of Information: Reports: Patient History Limitations: Reports: No Limitations - History of Present Illness INITIAL COMMENTS - FREE TEXT/NARRATIVE: Patient is a 29-year-old female who presents to the emergency department with complaints of pain and swelling to her left ankle after miss stepping down some stairs. She is unsure of the exact mechanism of injury. She has full sensation to her toes, however states she is unable to move them. She has no history of previous injury to this extremity. Left Ankle Pain Score (Numeric/FACES): 10 - Related Data Allergies Allergy/AdvReac Type Severity Reaction Status Date / Time No Known Allergies Allergy Verified 10/21/17 11:18 Home Meds: Home Meds . [No Known Home Meds] 05/04/20 [History] Past Medical History Gastrointestinal History: Reports: GERD - Past Surgical History Female Surgical History: Reports: Section Social & Family History - Family History Family Medical History: Noncontributory - Tobacco Use Smoking Status *Q: Current Every Day Smoker Years of Tobacco use: 10 Packs/Tins Daily: 11 - Caffeine Use Caffeine Use: Reports: Coffee, Soda - Recreational Drug Use Recreational Drug Use: No Review of Systems - Review of Systems Review Of Systems: See Below Constitutional: Reports: No Symptoms Eyes: Reports: No Symptoms Ears: Reports: No Symptoms Nose: Reports: No Symptoms Mouth/Throat: Reports: No Symptoms Respiratory: Reports: No Symptoms GI/Abdominal: Reports: No Symptoms Genitourinary: Reports: No Symptoms Musculoskeletal: Reports: Other (left ankle pain) Skin: Reports: No Symptoms Neurological: Reports: No Symptoms ED EXAM, GENERAL - Physical Exam Exam: See Below Exam Limited By: No Limitations General Appearance: Alert, WD/WN, Mild Distress Respiratory/Chest: No Respiratory Distress, Lungs Clear, Normal Breath Sounds, No Accessory Muscle Use, Chest Non-Tender Cardiovascular: Normal Peripheral Pulses, Regular Rate, Rhythm, No Edema, No Gallop, No JVD, No Murmur, No Rub Extremities: Other (Edema and obvious anterior deformity of the left ankle. CMS intact distal to the injury.) Neurological: Alert, Oriented, CN II-XII Intact, Normal Cognition, Normal Gait, Normal Reflexes, No Motor/Sensory Deficits Psychiatric: Normal Affect, Normal Mood Skin Exam: Warm, Dry, Intact, Normal Color, No Rash Course - Vital Signs Last Recorded V/S: Last Vital Signs Temp 98.1 F 05/04/20 11:06 Pulse 64 05/04/20 16:15 Resp 22 H 05/04/20 16:15 BP 123/78 05/04/20 16:15 Pulse Ox 97 05/04/20 16:15 - Orders/Labs/Meds Labs: Laboratory Tests 05/04/20 05/04/20 Range/Units 13:50 14:50 HCG, Qual Negative (NEGATIVE) COVID-19 ([facility]IK) Negative (NEGATIVE) Meds: Medications Discontinued Medications Generic Name Dose Route Start Last Admin Trade Name Freq PRN Reason Stop Dose Admin Fentanyl Confirm 05/04/20 14:44 Sublimaze Administered 05/04/20 14:45 Dose 100 mcg .ROUTE .STK-MED ONE Hydromorphone HCl 1 mg 05/04/20 12:01 05/04/20 12:19 Dilaudid IM 05/04/20 12:02 1 mg ONETIME ONE Administration Lactated Ringer's 1,000 mls @ 999 mls/hr 05/04/20 14:28 05/04/20 14:42 Ringers, Lactated IV 05/04/20 15:28 999 mls/hr .BOLUS ONE Administration Lidocaine HCl Confirm 05/04/20 14:44 Xylocaine-Mpf 1% Administered 05/04/20 14:45 Dose 4 mls @ as directed .ROUTE .STK-MED ONE Ketamine HCl Confirm 05/04/20 14:46 Ketalar Administered 05/04/20 14:47 Dose 500 mg .ROUTE .STK-MED ONE Metoclopramide HCl 10 mg 05/04/20 14:27 05/04/20 14:42 Reglan IVPUSH 10 mg ONETIME PRN Administration Nausea/Vomiting Midazolam HCl Confirm 05/04/20 14:44 Versed 1 Mg/Ml Administered 05/04/20 14:45 Dose 2 mg .ROUTE .STK-MED ONE Propofol Confirm 05/04/20 14:44 Diprivan 20 Ml Administered 05/04/20 14:45 Dose 400 mg .ROUTE .STK-MED ONE - Re-Assessments/Exams Free Text/Narrative Re-Assessment/Exam: 05/04/2020 1250 On exam, patient has obvious deformity of her left ankle. CMS is intact distal to the injury. X-rays were completed and show a distal tibial fracture and lateral malleolus fracture. There is a partial dislocation of the tibia in relation to the talus in the anterior direction. Called and spoke with the orthopedist on-call at [facility] and [place], Dr. Winslow. He recommended reduction of the ankle with a posterior splint being applied. He recommended that she then come to [place] to have ORIF. Discussed this with the patient and she is in agreement. Anesthesia has been notified to provide sedation for the reduction. 05/04/20 1520 Anesthesia was provided by HAN Zamora. Ankle was able to be easily reduced into the correct anatomic positioning and posterior splint was applied with the assistance of Dr. Biggs. Pt tolerated procedure well. I have ordered a CT scan of the extremity per the request of Dr. Winslow 05/04/[address] scan of the left lower extremity show successful reduction of the previously noted trimalleolar ankle fracture dislocation. There is now excellent alignment. Images have been pushed to Dr. Winslow at [facility] and [place] in [place]. Patient has been provided with crutches. Advised to go directly to the ER at [facility] in [place] and to remain n.p.o. She verbalized understanding of this. Discharge instructions as documented. Departure - Departure Time of Disposition: 16:12 Disposition: DC/Tfer to Acute Hospital 02 Condition: Good Clinical Impression: Ankle fracture, left Qualifiers: Encounter type: initial encounter Fracture type: closed Qualified Code(s): S82.892A - Other fracture of left lower leg, initial encounter for closed fracture Ankle dislocation Qualifiers: Encounter type: initial encounter Laterality: left Qualified Code(s): S93.05XA - Dislocation of left ankle joint, initial encounter - Discharge Information *PRESCRIPTION DRUG MONITORING PROGRAM REVIEWED*: No *COPY OF PRESCRIPTION DRUG MONITORING REPORT IN PATIENT SEMAJ: No Instructions: Tibial Fracture, Adult Referrals: Blade De Leon MD [Primary Care Provider] - Blade Winslow MD [Ordering Only Provider] - Forms: ED Department Discharge Additional Instructions: You were seen in the emergency department today for pain and swelling to your left ankle after miss stepping on the stairs. X-rays were done and show that you do have fractures of your ankle, as well as a dislocation. After sedation, we we were able to reduce the dislocation and splint your ankle. It is recommended that you go to the emergency department at [facility] in [place] from here. Do not eat or drink anything as the plan is for you to go to surgery. Do not walk on the ankle. Use the crutches that you have been provided. Dr. Winslow is the orthopedist on-call and he will be seeing you once you arrived to the [place] emergency department. Sepsis Event Note (ED) - Evaluation Sepsis Screening Result: No Definite Risk
[2020-05-04] MEDS ORDERED: Metoclopramide 10 MG/2 ML SDV IVPUSH PRN (14:27)
[2020-05-04] MEDS ORDERED: Lactated Ringers 1,000 ML IV ONE (14:28)
--- NOTE | 2020-05-04 14:35 | PCM.PREANE ---
Preanesthetic Assessment - Procedure Proposed Procedure: Closed Reduction Ankle for trasport to [place] - Anesthesia/Transfusion/Family Hx Anesthesia History: Prior Anesthesia Without Reaction Family History of Anesthesia Reaction: No Transfusion History: No Prior Transfusion(s) - Review of Systems General: No Symptoms Pulmonary: No Symptoms, Other (Smoker, 1 ppd. ) Cardiovascular: No Symptoms Gastrointestinal: No Symptoms Neurological: Pre-Existing Deficit, Difficulty Walking (Ankle injury, painful. ) Other: Reports: None - Physical Assessment NPO Status Date: 05/04/20 NPO Status Time: 08:30 Vital Signs: Last Vital Signs Temp 36.7 C 05/04/20 11:06 Pulse 88 05/04/20 11:06 Resp 16 05/04/20 11:06 BP 129/76 05/04/20 11:06 Pulse Ox 99 05/04/20 11:06 Height: 1.68 m Weight: 83.915 kg ASA Class: 2E Mental Status: Alert & Oriented x3 Airway Class: Mallampati = 2 Dentition: Reports: Dentures (Upper, Poor dentition lower teeth. ) Thyro-Mental Finger Breadths: 4 ROM/Head Extension: Full Lungs: Clear to Auscultation, Normal Respiratory Effort - Lab Values: Laboratory Last Values COVID-19 (ERIK) Negative (NEGATIVE) 05/04/20 14:50 - Allergies Allergies/Adverse Reactions: Allergies Allergy/AdvReac Type Severity Reaction Status Date / Time No Known Allergies Allergy Verified 10/21/17 11:18 - Anesthesia Plan Pre-Op Medication Ordered: Other (Metoclopramide IV) - Acknowledgements Anesthesia Type Planned: MAC Pt an Appropriate Candidate for the Planned Anesthesia: Yes Alternatives and Risks of Anesthesia Discussed w Pt/Guardian: Yes Pt/Guardian Understands and Agrees with Anesthesia Plan: Yes PreAnesthesia Questionnaire Gastrointestinal History: Reports: GERD - Past Surgical History Female Surgical History: Reports: Section - SUBSTANCE USE Smoking Status *Q: Current Every Day Smoker Tobacco Use Within Last Twelve Months: Cigarettes Recreational Drug Use History: No - HOME MEDS Home Medications: Home Meds . [No Known Home Meds] 05/04/20 [History] - CURRENT (IN HOUSE) MEDS Current Meds: Current Medications Lactated Ringer's (Ringers, Lactated) 1,000 mls @ 999 mls/hr IV .BOLUS ONE Stop: 05/04/20 15:28 Metoclopramide HCl (Reglan) 10 mg IVPUSH ONETIME PRN PRN Reason: Nausea/Vomiting Discontinued Medications Hydromorphone HCl (Dilaudid) 1 mg IM ONETIME ONE Stop: 05/04/20 12:02 Last Admin: 05/04/20 12:19 Dose: 1 mg Documented by:
[2020-05-04] MEDS ORDERED: Lidocaine 1% 4 ML ONE (14:44)
[2020-05-04] MEDS ORDERED: Midazolam 1 MG/ML 2 ML SDV ONE (14:44)
[2020-05-04] MEDS ORDERED: Propofol 200 MG/20 ML SDV ONE (14:44)
[2020-05-04] MEDS ORDERED: fentaNYL 100 MCG/2 ML SDV ONE (14:44)
[2020-05-04] MEDS ORDERED: Ketamine 500 mg/10 ML MDV ONE (14:46)
--- NOTE | 2020-05-04 15:21 | PCM48HPAN ---
Post Anesthesia Note - EVALUATION WITHIN 48HRS OF ANESTHETIC Vital Signs in Normal Range: Yes Patient Participated in Evaluation: Yes Respiratory Function Stable: Yes Airway Patent: Yes Cardiovascular Function Stable: Yes Hydration Status Stable: Yes Pain Control Satisfactory: Yes Nausea and Vomiting Control Satisfactory: Yes Mental Status Recovered: Yes Vital Signs: Last Vital Signs Temp 36.7 C 05/04/20 11:06 Pulse 88 05/04/20 11:06 Resp 16 05/04/20 11:06 BP 129/76 05/04/20 11:06 Pulse Ox 99 05/04/20 11:06
--- NOTE | 2020-05-06 08:53 | CT ---
CT left ankle and left foot Technique: Multiple axial sections were obtained of the foot and ankle. Reconstructed coronal and sagittal images were obtained. Findings: Fracture is identified within the medial malleolus and lateral malleolus. Fracture is also noted within the posterior malleolus. Alignment is close to anatomic. Previous dislocation has been reduced. No additional fracture is seen within the foot. Soft tissue swelling is noted. Impression: 1. Trimalleolar fracture. Alignment is close to anatomic. 2. Previous dislocation has been previous. 3. Soft tissue swelling. Diagnostic code #2 This report was dictated in MDT I agree with preliminary report from ad, finalized on 05/04/20, 5:01 PM Central Daylight Time [facility]
== END 2020-05-04 16:45 ==
LOC: JD.ED 10:47
DX: S82.852A Displaced trimalleolar fracture of left lower leg, initial encounter for closed fracture (principal); F17.210 Nicotine dependence, cigarettes, uncomplicated; Z20.828 Contact with and (suspected) exposure to other viral communicable diseases
CPT/HCPCS: 27818; 36415; 73610; 73630; 73700; 84703; 87635; 96372; 96374; 99284; J1170; J2001; J2250; J2704; J2765; J3010; J7120; 01462; U0002